=== PATIENT | male | born 1970 | race Caucasian/White ===

== ENCOUNTER 2023-02-10 16:06 | Emergency (ER) | payer OTHER, SELFPAY ==
--- NOTE | 2023-02-10 16:18 | XRR_ITS ---
PROCEDURE INFORMATION: Exam: XR Chest Exam date and time: 02/10/2023 4:31 PM Age: 52 years old Clinical indication: Pain; On breathing; Additional info: SOB TECHNIQUE: Imaging protocol: Radiologic exam of the chest. Views: 1 view. COMPARISON: No relevant prior studies available. FINDINGS: Lungs: No consolidation. Pleural spaces: No pleural effusion. No pneumothorax. Heart/Mediastinum: No cardiomegaly. Bones/joints: Unremarkable. XR/XR chest 1V portable [id number] IMPRESSION: No acute abnormality demonstrated.
[2023-02-10 16:22] VITALS: BP 154/101; PULSE 122; RESP 18; TEMP 37.1; O2SAT 94
--- NOTE | 2023-02-10 16:25 | W.ED.URI ---
HPI - URI/Sore Throat General: Chief Complaint: Nausea/Vomiting/Diarrhea Stated Complaint: FLU LIKE SYMPTOMS Time Seen by Provider: 02/10/23 16:07 Source: patient and EMS Mode of arrival: EMS Limitations: no limitations History of Present Illness: 52-year-old male states that over the last 2 days has been having flulike symptoms he states headache cough body aches chills. States he also had a fever earlier today of 101 he is afebrile here. He had some nausea denies any vomiting denies any diarrhea denies any abdominal pain. Said some mild dyspnea denies any chest pain. Associated symptoms: Reports chills, fever(s), headache(s) and nausea; Deny abdominal pain, chest pain, diarrhea or vomiting Review of Systems Const: Reports: fever(s), chills and body aches; Denies: change in appetite ENMT: Denies: throat pain or dental pain Card: Denies: chest pain Resp: Reports: dyspnea and non-productive cough GI: Reports: nausea; Denies: abdominal pain, vomiting or diarrhea : Denies: dysuria Musc: Denies: neck pain or back pain Neuro: Reports: headache(s) Myron/Lymph: Denies: easy bruising All/Imm: Denies: urticaria PFSH ED PFSH: Medical History (Updated 02/10/23 @ 17:57 by Rajni Welch MD) No pertinent past medical history Social History (Updated 02/10/23 @ 16:26 by Rajni Welch MD) Substance/Drug Use: never Physical Exam Const: COMMON NORMALS: no acute distress, patient oriented x3 and healthy appearing HENMT: COMMON NORMALS: normocephalic and atraumatic HEAD & SCALP: normocephalic and atraumatic THROAT: posterior oropharynx normal Eye: COMMON NORMALS: conjunctivae normal CONJUNCTIVA: Yes conjunctivae normal Neck/C-Spine: COMMON NORMALS: full ROM, supple and no meningeal signs Chest: COMMONS NORMALS: normal inspection of the chest and normal palpation of entire chest wall Resp: COMMON NORMALS: normal respiratory effort, No retractions, No use of accessory muscles and clear to auscultation bilaterally AUSCULTATION: clear to auscultation bilaterally Cardio: COMMON NORMALS: regular rhythm and No murmurs present (Cardio) RATE: tachycardic RHYTHM: regular rhythm GI: COMMON NORMALS: Normal to inspection, nondistended, normoactive bowel sounds present, Soft to palpation, non-tender and no masses PALPATION: Yes Soft to palpation Extremity: COMMON NORMALS: normal to inspection and full ROM Neuro: COMMON NORMALS: patient oriented x3, moves all extremities and no focal motor deficits MENINGEAL SIGNS: Yes no meningeal signs Psych: COMMON NORMALS: mental status grossly normal, Normal thought process present and cooperative THOUGHT PROCESS: Normal thought process present Skin: COMMON NORMALS: no rashes or lesions noted and no wounds GENERAL SKIN EXAM: no rashes or lesions noted Course Vital Signs: Vital signs: Vital Signs Temperature 98.8 F 02/10/23 16:22 Pulse Rate 122 H 02/10/23 16:22 Respiratory Rate 18 02/10/23 16:22 Blood Pressure 154/101 02/10/23 16:22 Pulse Oximetry 94 02/10/23 16:22 Oxygen Delivery Me thod Room Air 02/10/23 16:22 MDM - URI/Sore Throat Medical Decision Making Patient presents here with cough along with some vomiting and fevers he feels much improved here symptoms resolved after Toradol and Zofran and some IV fluids blood work here is normal besides a mild leukocytosis no large pneumonia seen his heart rate is improved its now 103 his D-dimer is negative no signs of a PE patient stable for discharge he is to follow-up with his PCP and return if worsening will prescribe him Zofran along with Keflex. Medical Records I reviewed the patient's medical records. Lab Data 02/10/23 17:06 02/10/23 17:06 Radiology Impressions Chest X-Ray 02/10/23 16:18 IMPRESSION: No acute abnormality demonstrated. Laboratory Results WBC 13.7 10^3/uL (4.0-10.0) H 02/10/23 17:06 RBC 5.14 10^6/uL (4.1-5.3) 02/10/23 17:06 Hgb 15.2 g/dL (11.7-16.6) 02/10/23 17:06 Hct 45.2 % (42.0-52.0) 02/10/23 17:06 MCV 87.9 fl (80-94) 02/10/23 17:06 MCH 29.6 pg (28.0-34.0) 02/10/23 17:06 MCHC 33.6 g/dL (30.0-36.0) 02/10/23 17:06 RDW 12.8 % (12.1-15.1) 02/10/23 17:06 Plt Count 181 10^3/cmm (130-400) 02/10/23 17:06 MPV 10.0 fL (7.4-10.4) 02/10/23 17:06 Neut % (Auto) 87.9 % 02/10/23 17:06 Lymph % (Auto) 3.9 % 02/10/23 17:06 [place] % (Auto) 7.4 % 02/10/23 17:06 Eos % (Auto) 0.0 % 02/10/23 17:06 Baso % (Auto) 0.4 % 02/10/23 17:06 Neut # (Auto) 12.07 10^3/uL (1.8-7.7) H 02/10/23 17:06 Lymph # (Auto) 0.5 10^3/uL (0.8-4.8) L 02/10/23 17:06 [place] # (Auto) 1.0 10^3/uL (0.2-0.9) H 02/10/23 17:06 Eos # (Auto) 0.0 10^3/uL (0.0-0.8) 02/10/23 17:06 Baso # (Auto) 0.1 10^3/uL (0.0-0.1) 02/10/23 17:06 Nucleated RBC % (auto) 0 % 02/10/23 17:06 Nucleated RBCs # 0.0 /100WBC 02/10/23 17:06 D-Dimer 0.49 ug/mIFEU (0-0.59) 02/10/23 17:06 Sodium 139 mmol/L (136-145) 02/10/23 17:06 Potassium 3.8 mmol/L (3.5-5.1) 02/10/23 17:06 Chloride 103 mmol/L (98-107) 02/10/23 17:06 Carbon Dioxide 20 mmol/L (22-29) L 02/10/23 17:06 Anion Gap 19.8 (5-19) H 02/10/23 17:06 BUN 15 mg/dL (6-20) 02/10/23 17:06 Creatinine 0.8 mg/dL (0.7-1.2) 02/10/23 17:06 GFR Calculation 101.1 mL/min (90-130) 02/10/23 17:06 Glucose 137 mg/dL (65-115) H 02/10/23 17:06 Calculated Osmolality 291 mOsm/kg (285-295) 02/10/23 17:06 Calcium 9.1 mg/dL (8.5-10.5) 02/10/23 17:06 Total Bilirubin 1.6 mg/dL (0.15-1.2) H 02/10/23 17:06 AST 11 U/L (0-40) 02/10/23 17:06 ALT 25 U/L (0-41) 02/10/23 17:06 Alkaline Phosphatase 71 U/L (40-130) 02/10/23 17:06 Total Protein 7.6 g/dL (6.6-8.7) 02/10/23 17:06 Albumin 4.6 g/dL (3.5-5.2) 02/10/23 17:06 Globulin 3.0 g/dL (1.3-4.6) 02/10/23 17:06 SARS-CoV-2 Ag (Rapid) negative 02/10/23 16:47 Discharge Plan Discharge Patient Disposition: Home Clinical Impression: Upper respiratory infection, Vomiting Prescriptions: New cephalexin 500 mg capsule 500 mg PO TID 7 Days Qty: 21 0RF ondansetron 4 mg tablet,disintegrating 4 mg PO Q6H PRN (Reason: nausea and vomiting) Qty: 14 0RF Discharge Orders: Discharge ED (Routine); Ordered 02/10/23 Ordered By: Rajni Welch Discharge Diet: Advance as tolerated Discharge Activity: Resume usual activity Patient Instructions: Upper Respiratory Infection (ED), Acute Nausea and Vomiting (ED) Coding Level of Care Code ED Facilities Maintenance Assistant for Leonora Petty
--- NOTE | 2023-02-10 16:46 | ECG_ITS ---
[facility] Test Date: 2023-02-10 Pat Name: Mac Westfall Department: Room: Gender: Male Vocational Psychologist: : 1970 Requested By: Rajni Welch Order Number: [id number] Bird MD: Omari Randall M.D. Measurements Intervals [place] Rate: 109 P: 38 OR: 148 QRS: -7 QRSD: 110 T: 21 QT: 323 QTc: 437 Interpretive Statements SINUS TACHYCARDIA LOW QRS VOLTAGE IN PRECORDIAL LEADS [QRS DEFLECTION < 1.0 mV IN CHEST LEADS] INCOMPLETE RIGHT BUNDLE BRANCH BLOCK [90+ ms QRS DURATION, TERMINAL R IN V1/V2, 40+ ms S IN I/aVL/V4/V5/V6] NONSPECIFIC T-WAVE ABNORMALITY ABNORMAL RHYTHM ECG No previous ECG available for comparison Electronically Signed On 02-10-2023 20:24:14 CDT by Omari Randall M.D. [id number]
--- NOTE | 2023-02-10 16:50 | PC.NURSE ---
Placed pt on bedside director of cardiac rehabilitation
[2023-02-10] MEDS: ketorolac 30 mg/mL INJ 15 MG IVP (17:01)
[2023-02-10] MEDS: ondansetron 2 mg/ML SDV 2 mL 4 MG IVP (17:01)
[2023-02-10] MEDS: acetaminophen 325 mg Tablet 650 MG PO (17:01)
[2023-02-10] MEDS: sodium chloride 0.9% 1,000 ML 999 ML IV (17:01)
[2023-02-10 17:14] LABS: SARS Covid-2 Antigen negative
[2023-02-10 17:14] LABS: Basophils # 0.1 10^3/uL (0.0-0.1); Basophils % 0.4 %; Hematocrit 45.2 % (42.0-52.0); Hemoglobin 15.2 g/dL (11.7-16.6); Lymphocytes # 0.5 10^3/uL (0.8-4.8); Lymphocytes % 3.9 %; Mean Corpuscular HGB Conc 33.6 g/dL (30.0-36.0); Mean Corpuscular Hemoglobin 29.6 pg (28.0-34.0); Mean Corpuscular Volume 87.9 fl (80-94); Monocytes % 7.4 %; Neutrophils # 12.07 10^3/uL (1.8-7.7); Neutrophils % 87.9 %; Nucleated Red Blood Cells % 0 %; Platelet Count 181 10^3/cmm (130-400); Red Blood Count 5.14 10^6/uL (4.1-5.3); Red Cell Distribution Width 12.8 % (12.1-15.1); White Blood Count 13.7 10^3/uL (4.0-10.0)
[2023-02-10 17:39] LABS: Alanine Aminotransferase 25 U/L (0-41); Albumin Level 4.6 g/dL (3.5-5.2); Alkaline Phosphatase 71 U/L (40-130); Anion Gap 19.8 (5-19); Aspartate Amino Transferase 11 U/L (0-40); Blood Urea Nitrogen 15 mg/dL (6-20); Calcium 9.1 mg/dL (8.5-10.5); Carbon Dioxide 20 mmol/L (22-29); Chloride 103 mmol/L (98-107); Glomerular Filtration Rate 101.1 mL/min (90-130); Glucose 137 mg/dL (65-115); Osmolality Calculated 291 mOsm/kg (285-295); Potassium 3.8 mmol/L (3.5-5.1); Sodium 139 mmol/L (136-145); Total Bilirubin 1.6 mg/dL (0.15-1.2); Total Protein 7.6 g/dL (6.6-8.7)
[2023-02-10 17:53] LABS: D Dimer 0.49 ug/mIFEU (0-0.59)
[2023-02-10 18:00] VITALS: BP 133/74; PULSE 118; O2SAT 92
[2023-02-10 18:14] VITALS: BP 111/91; PULSE 122; O2SAT 93
--- NOTE | 2023-02-21 13:47 | DCPLANNER ---
[facility] called patient due to no primary care physician - patient sees Dr. Lal at the [facility].
== END 2023-02-10 18:16 | disposition home or self-care (01) ==
PROVIDERS: Emergency Provider Emergency Medicine; PCP Family Medicine
DX: J06.9 Acute upper respiratory infection, unspecified (principal); R11.10 Vomiting, unspecified
CPT/HCPCS: 71045; 80053; 85025; 85378; 87426; 93005; 96361; 96374; 96375; 99285; J1885; J2405; J7030

== ENCOUNTER 2023-07-10 20:00 | Outpatient (CLI) | payer OTHER, SELFPAY | END 2023-07-10 20:01 | disposition home or self-care (01) | LOC: SLEEP 07-11 05:24 | PROVIDERS: PCP Family Medicine; Visit Provider Family Medicine | DX: G47.33 Obstructive sleep apnea (adult) (pediatric) (principal) | CPT/HCPCS: 95810 ==

== ENCOUNTER 2023-09-01 22:01 | Emergency (ER) | payer OTHER, SELFPAY ==
[2023-09-01 22:10] VITALS: BP 139/102; PULSE 96; RESP 18; TEMP 36.6; O2SAT 93
[2023-09-01 23:04] LABS: Basophils # 0.1 10^3/uL (0.0-0.1); Basophils % 1.1 %; Eosinophils # 0.2 10^3/uL (0.0-0.8); Hematocrit 44.1 % (37-53); Lymphocytes % 26.6 %; Mean Corpuscular HGB Conc 33.8 g/dL (30-55); Mean Corpuscular Hemoglobin 30.3 pg (27-33); Mean Corpuscular Volume 89.8 fl (82-101); Mean Platelet Volume 9.9 fL (7.4-10.4); Monocytes # 0.7 10^3/uL (0.2-0.9); Monocytes % 9.5 %; Neutrophils # 4.43 10^3/uL (1.8-7.7); Neutrophils % 60.3 %; Nucleated Red Blood Cells % 0 %; Platelet Count 190 10^3/cmm (157-399); Red Blood Count 4.91 10^6/uL (3.85-5.65); Red Cell Distribution Width 12.8 % (12.1-15.1); White Blood Count 7.36 10^3/uL (3.29-11.43)
[2023-09-01 23:38] LABS: Acetaminophen < 5.0 ug/mL (10-30); Alanine Aminotransferase 24 U/L (0-41); Albumin Level 4.3 g/dL (3.5-5.2); Alcohol Level 89 mg/dL (0-10); Alkaline Phosphatase 78 U/L (40-130); Anion Gap 15.8 (5-19); Aspartate Amino Transferase 14 U/L (0-40); Blood Urea Nitrogen 15 mg/dL (6-20); Calcium 9.1 mg/dL (8.5-10.5); Carbon Dioxide 23 mmol/L (22-29); Chloride 104 mmol/L (98-107); Globulin 2.6 g/dL (1.3-4.6); Glomerular Filtration Rate 87.9 mL/min (90-130); Glucose 198 mg/dL (65-115); Osmolality Calculated 294 mOsm/kg (285-295); Potassium 3.8 mmol/L (3.5-5.1); Salicylate < 0.3 mg/dL (3-10); Sodium 139 mmol/L (136-145); Thyroid Stimulating Hormone 3.51 uIU/mL (0.27-4.20); Total Bilirubin 0.5 mg/dL (0.15-1.2); Total Protein 6.9 g/dL (6.6-8.7)
--- NOTE | 2023-09-01 23:42 | ECG_ITS ---
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 Measurements Intervals [place] Rate: 81 P: 50 MO: 171 QRS: -20 QRSD: 109 T: 29 QT: 395 QTc: 461 Interpretive Statements SINUS RHYTHM LOW QRS VOLTAGE IN PRECORDIAL LEADS [QRS DEFLECTION < 1.0 mV IN CHEST LEADS] Compared to ECG 02/10/2023 17:17:30 Sinus tachycardia no longer present Incomplete right bundle-branch block no longer present T-wave abnormality no longer present Electronically Signed On 09-02-2023 8:36:07 BUNDLER by Kip Bright M.D. [id number]
--- NOTE | 2023-09-02 00:04 | ED.C_ITS ---
HPI - Psych 2 General: Chief Complaint: Psychiatric Symptoms Stated Complaint: SI Time Seen by Provider: 09/01/23 22:21 History of Present Illness: 53-year-old male patient presenting to [facility] after calling the hotline and making a suicidal statement. He notes that he had had 4 drinks tonight and was watching a TV show that triggered his suicidal ideation. He had thoughts about taking all of his Eliquis. He states that he has diabetes. No recent illnesses or fevers. He states now that he is here, he is no longer feeling suicidal. Review of Systems 2 Const: Denies: fever(s), chills or body aches Eyes: Denies: change in vision Card: Denies: chest pain or palpitations Resp: Denies: dyspnea, productive cough, non-productive cough or wheezing GI: Denies: abdominal pain, nausea, vomiting, diarrhea or hematochezia Skin/Breast: Denies: rash Neuro: Denies: headache(s), weakness in extremities, dizziness or confusion PFSH ED 2 PFSH: Medical History No pertinent past medical history Social History Substance/Drug Use: never Physical Exam 2 Const: COMMON NORMALS: no acute distress GENERAL APPEARANCE: cooperative; not ill appearing and not frail appearing HENMT: COMMON NORMALS: normocephalic, atraumatic and Normal external nose present HEAD & SCALP: normocephalic and atraumatic FACE & SINUS: normal facial exam and face symmetric NOSE: Normal external nose present Eye: COMMON NORMALS: Equal, round and reactive pupils present and EOMs intact bilaterally PUPIL: Yes Equal, round and reactive pupils present Neck/C-Spine: GENERAL: Yes trachea midline Chest: CHEST: Yes Symmetrical chest wall rise Resp: COMMON NORMALS: normal respiratory effort, No retractions, No use of accessory muscles and clear to auscultation bilaterally AUSCULTATION: clear to auscultation bilaterally Cardio: COMMON NORMALS: regular rate and regular rhythm RATE: regular rate RHYTHM: regular rhythm GI: COMMON NORMALS: Normal to inspection, nondistended, normoactive bowel sounds present Extremity: COMMON NORMALS: no pedal edema Neuro: JANIYA COMA SCALE: document GCS findings [place] coma scale eye opening: Spontaneous [place] coma scale verbal response: Orientated [place] coma scale motor response: Obey commands [place] coma scale total score: 15 S ENSORY EXAM: Yes extremities (intact) Psych: COMMON NORMALS: speech normal SPEECH: Yes normal speech Skin: COMMON NORMALS: no rashes or lesions noted GENERAL SKIN EXAM: no rashes or lesions noted Course 2 Vital Signs: Vital signs: Vital Signs Temperature 98 F 09/01/23 22:10 Pulse Rate 96 09/01/23 22:10 Respiratory Rate 18 09/01/23 22:10 Blood Pressure 139/102 09/01/23 22:10 Pulse Oximetry 93 09/01/23 22:10 Oxygen Delivery Me thod Room Air 09/01/23 22:10 MDM - Psych Medical Decision Making Patient with suicidal ideation on presentation. Blood sugar is 198, otherwise CBC and BMP are nonremarkable. Other laboratory is not remarkable, except for an alcohol level of 89. Urinalysis is pending. The patient is no longer suicidal. His symptoms were resolved on arrival here. He says that these feelings were stupid . He assures me that he will not harm himself if released. He wishes to go home. He believes intoxication had a lot to do with his suicidal thoughts, and he has sobered up now. Medically, he is stable. Lab Data 09/01/23 22:54 09/01/23 22:54 Laboratory Results WBC 7.36 10^3/uL (3.29-11.43) 09/01/23 22:54 RBC 4.91 10^6/uL (3.85-5.65) 09/01/23 22:54 Hgb 14.90 g/dL (11.27-16.99) 09/01/23 22:54 Hct 44.1 % (37-53) 09/01/23 22:54 MCV 89.8 fl (82-101) 09/01/23 22:54 MCH 30.3 pg (27-33) 09/01/23 22:54 MCHC 33.8 g/dL (30-55) 09/01/23 22:54 RDW 12.8 % (12.1-15.1) 09/01/23 22:54 Plt Count 190 10^3/cmm (157-399) 09/01/23 22:54 MPV 9.9 fL (7.4-10.4) 09/01/23 22:54 Neut % (Auto) 60.3 % 09/01/23 22:54 Lymph % (Auto) 26.6 % 09/01/23 22:54 [place] % (Auto) 9.5 % 09/01/23 22:54 Eos % (Auto) 2.0 % 09/01/23 22:54 Baso % (Auto) 1.1 % 09/01/23 22:54 Neut # (Auto) 4.43 10^3/uL (1.8-7.7) 09/01/23 22:54 Lymph # (Auto) 2.0 10^3/uL (0.8-4.8) 09/01/23 22:54 [place] # (Auto) 0.7 10^3/uL (0.2-0.9) 09/01/23 22:54 Eos # (Auto) 0.2 10^3/uL (0.0-0.8) 09/01/23 22:54 Baso # (Auto) 0.1 10^3/uL (0.0-0.1) 09/01/23 22:54 Nucleated RBC % (auto) 0 % 09/01/23 22:54 Nucleated RBCs # 0.0 /100WBC 09/01/23 22:54 Sodium 139 mmol/L (136-145) 09/01/23 22:54 Potassium 3.8 mmol/L (3.5-5.1) 09/01/23 22:54 Chloride 104 mmol/L (98-107) 09/01/23 22:54 Carbon Dioxide 23 mmol/L (22-29) 09/01/23 22:54 Anion Gap 15.8 (5-19) 09/01/23 22:54 BUN 15 mg/dL (6-20) 09/01/23 22:54 Creatinine 0.9 mg/dL (0.7-1.2) 09/01/23 22:54 GFR Calculation 87.9 mL/min (90-130) L 09/01/23 22:54 Glucose 198 mg/dL (65-115) H 09/01/23 22:54 Calculated Osmolality 294 mOsm/kg (285-295) 09/01/23 22:54 Calcium 9.1 mg/dL (8.5-10.5) 09/01/23 22:54 Total Bilirubin 0.5 mg/dL (0.15-1.2) 09/01/23 22:54 AST 14 U/L (0-40) 09/01/23 22:54 ALT 24 U/L (0-41) 09/01/23 22:54 Alkaline Phosphatase 78 U/L (40-130) 09/01/23 22:54 Total Protein 6.9 g/dL (6.6-8.7) 09/01/23 22:54 Albumin 4.3 g/dL (3.5-5.2) 09/01/23 22:54 Globulin 2.6 g/dL (1.3-4.6) 09/01/23 22:54 TSH 3.51 uIU/mL (0.27-4.20) 09/01/23 22:54 Salicylates < 0.3 mg/dL (3-10) L 09/01/23 22:54 Acetaminophen < 5.0 ug/mL (10-30) L 09/01/23 22:54 Ethyl Alcohol 89 mg/dL (0-10) H 09/01/23 22:54 No radiology studies performed this visit Discharge Plan Discharge Patient Disposition: Home Clinical Impression: Depression Condition: Stable Prescriptions: No Action ondansetron 4 mg tablet,disintegrating 4 mg PO Q6H PRN (Reason: nausea and vomiting) Qty: 14 0RF Discharge Orders: Discharge ED (Routine); Ordered 09/02/23 Ordered By: Chuck Flowers Referrals: Annika Lal MD [Primary Care Provider] - 1-3 days Patient Instructions: Depression (ED), Opioid Safety, Pain Management Activity Restrictions/Additional Instructions: Return immediately to the emergency department for the return of thoughts or wishes to harm yourself or anyone else. Avoid alcohol use, as it can worsen these feelings. Coding Level of Care Code ED Carriage Rider for Leonora Petty
--- NOTE | 2023-09-02 01:10 | PC.NURSE ---
Once patient has had time to sober , pt. states that he was just drunk and made stupid comments
== END 2023-09-02 01:11 | disposition home or self-care (01) ==
PROVIDERS: Emergency Provider Emergency Medicine; PCP Family Medicine
DX: F32.A Depression, unspecified (principal)
CPT/HCPCS: 36415; 80053; 80307; 84443; 85025; 93005; 99284

== ENCOUNTER 2024-03-17 13:33 | Emergency (ER) | payer OTHER, SELFPAY ==
[2024-03-17 13:44] VITALS: BP 128/87; PULSE 75; RESP 16; TEMP 37.1; O2SAT 97; BMI 33.4
--- NOTE | 2024-03-17 13:50 | USCV_ITS ---
Mac Westfall Age: 53 Gender: M : 1970 Exam Date: 03/17/2024 14:55 Ordering Phys: Rajni Welch MD Technologist: R Exam Location: [facility] [place]_ Indication: Rt calf pain HISTORY: Lower extremity pain. PROCEDURES: Venous duplex imaging was performed in only the right lower extremity. The following venous structures were evaluated: common femoral vein, profunda vein, proximal portion of the greater saphenous vein, superficial femoral vein, and the popliteal vein. In addition, the posterior tibial and peroneal trunk were evaluated. Serial compression, augmentation maneuvers, and spectral Doppler flow evaluation were performed. FINDINGS: No evidence of DVT seen in any vessel visualized at this time. CONCLUSIONS No evidence of right lower extremity DVT. Boaz Aguilar MD (Electronically Signed) Final Date: 17 March 2024 16:21 S
--- NOTE | 2024-03-17 13:59 | ED_ITS ---
HPI - Extremity Problem General: Chief complaint: Extremity Injury, Lower Stated complaint: [facility] right calf [facility] Time Seen by Provider: 03/17/24 13:54 Source: patient Mode of arrival: ambulatory Limitations: no limitations History of Present Illness: Patient is a nice 53-year-old male presents to ED today with complaint of right calf pain and concern for DVT. He states he ran out of his Eliquis on Sunday. Patient states he began noticing right calf pain on the following day/Sunday. He was reportedly seen at the [place] today and referred to the emergency department for ultrasound imaging. They have refilled his Eliquis and he states that is currently waiting at the pharmacy to be filled. He does not complain of chest pain, shortness of breath, difficulty breathing. MD Complaint: extremity pain (R calf) Onset (ago): day(s) Pain Consistency: constant Location: right and lower extremity Radiation: none Relieving factors: nothing Exacerbating factors: walking Associated symptoms: Reports no associated symptoms; Deny chest pain Context: history of DVT Review of Systems Card: Denies: chest pain Resp: Denies: dyspnea or hemoptysis Musc: Reports: extremity pain (R calf); Denies: neck pain, back pain, extremity swelling, joint pain, joint swelling, joint redness or joint warmth Neuro: Denies: numbness in extremities or sensory changes [facility] ED PFSH: Medical History No pertinent past medical history Social History Substance/Drug Use: never Physical Exam Const: COMMON NORMALS: no acute distress, average body habitus, patient oriented x3, no limitations, healthy appearing, alert and well nourished Resp: COMMON NORMALS: normal respiratory effort and clear to auscultation bilaterally AUSCULTATION: clear to auscultation bilaterally Cardio: COMMON NORMALS: regular rate and regular rhythm RATE: regular rate RHYTHM: regular rhythm Extremity: COMMON NORMALS: normal to inspection, capillary refill normal, no joint enlargement, no clubbing, cyanosis or edema and no pedal edema NARRATIVE EXTREMITY EXAM: no palpable cords; no obvious calf swelling; R calf tenderness present GENERAL: Yes normal exam except as noted and Yes calf tenderness (right) Neuro: COMMON NORMALS: patient oriented x3, moves all extremities, no focal motor deficits and no sensory deficits noted SENSORIUM/ORIENTATION: Yes alert Skin: COMMON NORMALS: no rashes or lesions noted GENERAL SKIN EXAM: no rashes or lesions noted Course Vital Signs: Vital signs: Vital Signs Temperature 98.8 F 03/17/24 16:02 Pulse Rate 78 03/17/24 16:02 Respiratory Rate 16 03/17/24 16:02 Blood Pressure 132/91 03/17/24 16:02 Pulse Oximetry 98 03/17/24 16:02 Oxygen Delivery Me thod Room Air 03/17/24 13:44 MDM - Extremity (Nontraumatic) Medical Decision Making Per environmental technician/preliminary report there is no DVT present. Patient states he has his Eliquis prescription waiting for him at the pharmacy. Recommend he start this immediately continue prophylaxis. Medical Records I reviewed the patient's medical records. XR interpretation done by ED provider, pending radiology final review (per US tech-no DVT) Discharge Plan Discharge Patient Disposition: Home Clinical Impression: Right calf pain Condition: Stable Prescriptions: No Action ondansetron 4 mg tablet,disintegrating 4 mg PO Q6H PRN (Reason: nausea and vomiting) Qty: 14 0RF Discharge Orders: Discharge ED (Routine); Ordered 03/17/24 Ordered By: Merle Washington Referrals: Annika Lal MD [Primary Care Provider] - Activity Restrictions/Additional Instructions: Fill your Eliquis prescription and get started back on it immediately. You need to return to the emergency department for onset of chest pain, shortness of breath, difficulty breathing, worsening calf pain or swelling, or any other concerns you may have. Coding Level of Care Code ED Gis Web Developer for Leonora Petty
[2024-03-17 16:02] VITALS: BP 132/91; PULSE 78; RESP 16; TEMP 37.1; O2SAT 98
== END 2024-03-17 15:49 | disposition home or self-care (01) ==
PROVIDERS: Emergency Provider Physician Assistant; PCP Family Medicine
DX: M79.661 Pain in right lower leg (principal)
CPT/HCPCS: 93971; 99284

== ENCOUNTER 2024-08-03 10:24 | Emergency (ER) | payer OTHER, SELFPAY ==
--- NOTE | 2024-08-03 10:27 | XRR_ITS ---
PROCEDURE INFORMATION: Exam: XR Chest Exam date and time: 08/03/2024 10:29 AM Age: 54 years old Clinical indication: Pain; Chest pressure; Additional info: Cp TECHNIQUE: Imaging protocol: Radiologic exam of the chest. Views: 1 view. COMPARISON: CR XR chest 1V portable [id number] 02/10/2023 4:31 PM FINDINGS: Lungs: Unremarkable. No consolidation. Pleural spaces: Unremarkable. No pleural effusion. No pneumothorax. Heart/Mediastinum: Unremarkable. No cardiomegaly. Bones/joints: Unremarkable. XR/XR chest 1V portable [id number] IMPRESSION: No acute findings.
--- NOTE | 2024-08-03 10:27 | ECG_ITS ---
[facility] Test Date: 2024-08-03 Pat Name: Mac Westfall Department: Room: Gender: Male Display Manager: : 1970 Requested By: Carlos Manley Order Number: [id number] MD: Jeison Devries M.D. Measurements Intervals [place] Rate: 78 P: 48 FL: 161 QRS: -18 QRSD: 102 T: 24 QT: 376 QTc: 429 Interpretive Statements SINUS RHYTHM Nonspecific ST changes Compared to ECG 09/01/2023 23:42:11 No significant changes Electronically Signed On 08-03-2024 14:01:13 CARDIAC RN by Jeison Devries M.D. [id number]
[2024-08-03 10:28] VITALS: BP 156/96; PULSE 72; RESP 18; TEMP 36.6; O2SAT 96; BMI 33.8
--- NOTE | 2024-08-03 10:48 | ED_ITS ---
HPI - Chest Pain 2 General: Chief Complaint: Chest Pain Stated Complaint: chest pain Time Seen by Provider: 08/03/24 10:27 Source: patient Mode of arrival: ambulatory Limitations: no limitations History of Present Illness: This patient drove himself to the emergency department from his home this morning. He states that he is concerned about chest pain. He states he developed chest pain when he was stretching this morning and was a sharp pain in his lower sternum in his epigastric area. He states that it came on as noted with stretching. He states he does not have any associated shortness of breath cough fever etc. He does not have any known history of coronary artery disease or lung disease. 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 He denies any recent illness. He states he had similar symptoms several years ago. He is concerned and wants to make sure it is not anything serious MD complaint: chest pain Pain radiation: none Quality: aching Exacerbating factors: inspiration and palpation Associated symptoms: Deny abdominal pain, dyspnea, fever(s), nausea, palpitations, syncope or vomiting Risk Factors: Coronary artery disease risk factors: none Related Data Previous Rx's Medication Instructions Recorded ondansetron 4 mg disintegrating 4 mg PO Q6H PRN nausea and 02/10/23 tablet vomiting #14 tabs Allergies Allergy/AdvReac Type Severity Reaction Status Date / Time No Known Allergies Allergy Verified 09/01/23 22:17 Review of Systems 2 Const: Denies: fever(s) or chills ENMT: Denies: throat pain, odynophagia, nasal discharge or nasal congestion Card: Reports: chest pain; Denies: palpitations, irregular heart rhythm, syncope or pre-syncope Resp: Denies: dyspnea, productive cough or non-productive cough GI: Denies: abdominal pain, nausea or vomiting : Denies: flank pain, difficulty urinating, dysuria or urinary frequency Musc: Denies: neck pain, back pain, extremity pain or extremity swelling Skin/Breast: Denies: rash or pruritus Neuro: Denies: headache(s), numbness in extremities or weakness in extremities Psych: Denies: anxiety Myron/Lymph: Reports: easy bruising PFSH ED 2 PFSH: Medical History No pertinent past medical history Social History Substance/Drug Use: never Physical Exam 2 Narrative: EXAM NARRATIVE: He appears to be in no acute distress answers questions in a goal-directed and fluent fashion. Const: COMMON NORMALS: no acute distress, patient oriented x3, healthy appearing and alert GENERAL APPEARANCE: cooperative and comfortable N UTRITIONAL APPEARANCE: overweight HENMT: COMMON NORMALS: normocephalic, Normal nasal mucous membranes and turbinates present, moist oral mucous membranes and oropharynx normal HEAD & SCALP: normocephalic NOSE: Normal nasal mucous membranes and turbinates present Eye: COMMON NORMALS: Equal, round and reactive pupils present, EOMs intact bilaterally and conjunctivae normal CONJUNCTIVA: Yes conjunctivae normal P UPIL: Yes Equal, round and reactive pupils present Neck/C-Spine: COMMON NORMALS: full ROM and no lymphadenopathy Chest: COMMONS NORMALS: normal inspection of the chest OTHER: He has tenderness in his lower chest particularly along the costochondral margins more so on the left than the right. Abduction of his left arm reproduces a popping sensation to his left anterior chest. There is no deformity there is no rash there is no subcutaneous emphysema etc. Chest images (male): 1. Area of tenderness Resp: COMMON NORMALS: normal respiratory effort, No retractions, No use of accessory muscles and clear to auscultation bilaterally AUSCULTATION: clear to auscultation bilaterally Cardio: COMMON NORMALS: regular rate, regular rhythm, No murmurs present (Cardio) and Peripheral pulses 2+ throughout RATE: regular rate RHYTHM: r egular rhythm PERIPHERAL PULSES: Peripheral pulses 2+ throughout GI: COMMON NORMALS: Normal to inspection, nondistended, normoactive bowel sounds present, Soft to palpation, non-tender, No hepatosplenomegaly present, no masses and no bruits PALPATION: Yes Soft to palpation and Yes No hepatosplenomegaly present : COMMON NORMALS: Yes no CVA tenderness BLADDER/KIDNEY EXAM: Yes no CVA tenderness Back/Pelvis: COMMON NORMALS: no CVA tenderness and thoracic and lumbar spine normal to inspection OTHER: Mild thoracic tenderness around the level of T8-T10 on the left. No skin changes etc. Extremity: COMMON NORMALS: full ROM, capillary refill normal, no calf tenderness and no pedal edema Neuro: COMMON NORMALS: patient oriented x3, moves all extremities, no focal motor deficits and no sensory deficits noted SENSORIUM/ORIENTATION: Yes alert Psych: COMMON NORMALS: mental status grossly normal Skin: COMMON NORMALS: no rashes or lesions noted and turgor normal GENERAL SKIN EXAM: no rashes or lesions noted and turgor normal Course 2 Vital Signs: Vital signs: Vital Signs Temperature 97.8 F 08/03/24 10:28 Pulse Rate 72 08/03/24 10:28 Respiratory Rate 20 H 08/03/24 11:00 Blood Pressure 143/84 08/03/24 11:00 Pulse Oximetry 95 08/03/24 11:00 Oxygen Delivery Me thod Room Air 08/03/24 10:28 MDM - Chest Pain Medical Decision Making Patient who presented with chest pain as noted in the HPI. Differential is predominantly way towards musculoskeletal but because of the patient's concerns as well as other potential risk factors differential included establishing no evidence of ACS arrhythmia pneumonia etc. chest x-ray biomarkers EKG residential monitor are all reassuring without any evidence of arrhythmia, EKG changes suggestive of ischemia and negative biomarker. His history strongly supports musculoskeletal etiology. No evidence of pneumothorax rib fracture etc. This was reviewed and discussed with the patient in detail who voiced understanding. No evidence at this time of an ongoing emergency medical condition but return precautions were reviewed with the patient. Lab Data I reviewed the patient's lab results. 08/03/24 10:49 08/03/24 10:49 Radiology Impressions Chest X-Ray 08/03/24 10:27 IMPRESSION: No acute findings. Laboratory Results WBC 7.40 10^3/uL (3.29-11.43) 08/03/24 10:49 RBC 4.93 10^6/uL (3.85-5.65) 08/03/24 10:49 Hgb 14.80 g/dL (11.27-16.99) 08/03/24 10:49 Hct 44.3 % (37-53) 08/03/24 10:49 MCV 89.9 fl (82-101) 08/03/24 10:49 MCH 30.0 pg (27-33) 08/03/24 10:49 MCHC 33.4 g/dL (30-55) 08/03/24 10:49 RDW 12.7 % (12.1-15.1) 08/03/24 10:49 Plt Count 188 10^3/cmm (157-399) 08/03/24 10:49 MPV 10.2 fL (7.4-10.4) 08/03/24 10:49 Neut % (Auto) 67.1 % 08/03/24 10:49 Lymph % (Auto) 21.5 % 08/03/24 10:49 [place] % (Auto) 9.3 % 08/03/24 10:49 Eos % (Auto) 0.9 % 08/03/24 10:49 Baso % (Auto) 0.8 % 08/03/24 10:49 Neut # (Auto) 4.96 10^3/uL (1.8-7.7) 08/03/24 10:49 Lymph # (Auto) 1.6 10^3/uL (0.8-4.8) 08/03/24 10:49 [place] # (Auto) 0.7 10^3/uL (0.2-0.9) 08/03/24 10:49 Eos # (Auto) 0.1 10^3/uL (0.0-0.8) 08/03/24 10:49 Baso # (Auto) 0.1 10^3/uL (0.0-0.1) 08/03/24 10:49 Nucleated RBC % (auto) 0 % 08/03/24 10:49 Nucleated RBCs # 0.0 /100WBC 08/03/24 10:49 Sodium 141 mmol/L (136-145) 08/03/24 10:49 Potassium 4.4 mmol/L (3.5-5.1) 08/03/24 10:49 Chloride 106 mmol/L (98-107) 08/03/24 10:49 Carbon Dioxide 24 mmol/L (22-29) 08/03/24 10:49 Anion Gap 15.4 (5-19) 08/03/24 10:49 BUN 14 mg/dL (6-20) 08/03/24 10:49 Creatinine 0.9 mg/dL (0.7-1.2) 08/03/24 10:49 Calcium 8.6 mg/dL (8.5-10.5) 08/03/24 10:49 Total Bilirubin 0.7 mg/dL (0.15-1.2) 08/03/24 10:49 AST 25 U/L (0-40) 08/03/24 10:49 ALT 37 U/L (0-41) 08/03/24 10:49 Alkaline Phosphatase 81 U/L (40-130) 08/03/24 10:49 Troponin T Baseline < 6 ng/L (0-15) 08/03/24 10:49 Total Protein 6.6 g/dL (6.6-8.7) 08/03/24 10:49 Albumin 4.5 g/dL (3.5-5.2) 08/03/24 10:49 Globulin 2.1 g/dL (1.3-4.6) 08/03/24 10:49 All radiology interpretation(s) finalized by discharge EKG Data EKG 1: I personally reviewed and interpreted this EKG as follows: Interpretation: Resting EKG reveals ventricular rate of 78 bpm. Normal CO interval QRS duration and QT corrected QT interval. Normal axis. No acute ST-T wave changes noted. Discharge Plan Discharge Patient Disposition: Home Clinical Impression: Chest pain, Costochondral pain Condition: Stable Prescriptions: No Action ondansetron 4 mg tablet,disintegrating 4 mg PO Q6H PRN (Reason: nausea and vomiting) Qty: 14 0RF Discharge Orders: Discharge ED (Routine); Ordered 08/03/24 Ordered By: Carlos Manley Referrals: Annika Lal MD [Primary Care Provider] - Discharge Diet: Usual diet Discharge Activity: Increase activity as tolerated Patient Instructions: Opioid Safety, Pain Management Activity Restrictions/Additional Instructions: As discussed while you are in the emergency department there is no evidence today that your pain is related to any heart or lung issues. As we also discussed that it would appear the to be as a result of strain or stress on your junction of your your breastbone. We recommend using acetaminophen for any pain control or any of your other usual medications and to use for pain control. This may take several days to 2 to 3 weeks to resolve. If you develop any new or concerning symptoms prolonged chest pain with activity shortness of breath with sweating and nausea etc. return to the emergency department immediately for reevaluation. Coding Level of Care Code ED Addictions Therapist for Leonora Petty
[2024-08-03 10:58] LABS: Basophils # 0.1 10^3/uL (0.0-0.1); Basophils % 0.8 %; Eosinophils # 0.1 10^3/uL (0.0-0.8); Eosinophils % 0.9 %; Hematocrit 44.3 % (37-53); Lymphocytes # 1.6 10^3/uL (0.8-4.8); Lymphocytes % 21.5 %; Mean Corpuscular HGB Conc 33.4 g/dL (30-55); Mean Corpuscular Volume 89.9 fl (82-101); Mean Platelet Volume 10.2 fL (7.4-10.4); Monocytes # 0.7 10^3/uL (0.2-0.9); Monocytes % 9.3 %; Neutrophils # 4.96 10^3/uL (1.8-7.7); Neutrophils % 67.1 %; Nucleated Red Blood Cells % 0 %; Platelet Count 188 10^3/cmm (157-399); Red Blood Count 4.93 10^6/uL (3.85-5.65); Red Cell Distribution Width 12.7 % (12.1-15.1)
[2024-08-03 11:00] VITALS: BP 143/84; RESP 20; O2SAT 95
[2024-08-03 11:23] LABS: Alanine Aminotransferase 37 U/L (0-41); Albumin Level 4.5 g/dL (3.5-5.2); Alkaline Phosphatase 81 U/L (40-130); Anion Gap 15.4 (5-19); Aspartate Amino Transferase 25 U/L (0-40); Blood Urea Nitrogen 14 mg/dL (6-20); Calcium 8.6 mg/dL (8.5-10.5); Carbon Dioxide 24 mmol/L (22-29); Chloride 106 mmol/L (98-107); Creatinine Clr Calc Pharmacy 113.6209; Globulin 2.1 g/dL (1.3-4.6); Glomerular Filtration Rate 87.6 mL/min (90-130); Glucose 189 mg/dL (65-115); Osmolality Calculated 298 mOsm/kg (285-295); Potassium 4.4 mmol/L (3.5-5.1); Sodium 141 mmol/L (136-145); Total Bilirubin 0.7 mg/dL (0.15-1.2); Total Protein 6.6 g/dL (6.6-8.7); Troponin(5th) Baseline < 6 ng/L (0-15)
[2024-08-03 11:30] VITALS: BP 124/83; PULSE 75; RESP 15; O2SAT 95
[2024-08-03 11:56] VITALS: BP 121/79; PULSE 78; O2SAT 94
== END 2024-08-03 11:57 | disposition home or self-care (01) ==
PROVIDERS: Emergency Provider Emergency Medicine; PCP Family Medicine
DX: R07.1 Chest pain on breathing (principal)
CPT/HCPCS: 71045; 80053; 84484; 85025; 93005; 99285

== ENCOUNTER 2024-08-13 02:29 | Emergency (ER) | payer OTHER, SELFPAY ==
[2024-08-13 02:33] VITALS: BP 174/116; PULSE 94; RESP 18; TEMP 36.4; O2SAT 94; BMI 34.1
--- NOTE | 2024-08-13 02:33 | ECG_ITS ---
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1970 Requested By: Juice Chang Order Number: [id number] Bird MD: HIEU ALEGRIA Measurements Intervals [place] Rate: 91 P: 52 MA: 157 QRS: -19 QRSD: 102 T: 31 QT: 360 QTc: 444 Interpretive Statements SINUS RHYTHM LOW QRS VOLTAGE IN PRECORDIAL LEADS [QRS DEFLECTION < 1.0 mV IN CHEST LEADS] INCOMPLETE RIGHT BUNDLE BRANCH BLOCK [90+ ms QRS DURATION, TERMINAL R IN V1/V2, 40+ ms S IN I/aVL/V4/V5/V6] INTERPRETATION BASED ON A DEFAULT AGE OF 40 YEARS Compared to ECG 08/03/2024 10:28:24 Low QRS voltage now present Incomplete right bundle-branch block now present ST (T wave) deviation no longer present Electronically Signed On 08-13-2024 18:09:24 DIRECTOR OF COMPENSATION by HIEU ALEGRIA [id number]
[2024-08-13 02:36] VITALS: BP 142/96; PULSE 88; RESP 12; O2SAT 96
--- NOTE | 2024-08-13 02:36 | XRR_ITS ---
PROCEDURE INFORMATION: Exam: XR Chest Exam date and time: 08/13/2024 2:49 AM Age: 54 years old Clinical indication: Other: Palpitations; Additional info: Palpitations, tachycardia HTN TECHNIQUE: Imaging protocol: Radiologic exam of the chest. Views: 1 view. COMPARISON: CR (CHEST, ) 08/03/2024 10:29 AM FINDINGS: Lungs: Unremarkable. No consolidation. Pleural spaces: Unremarkable. No pleural effusion. No pneumothorax. Heart/Mediastinum: Unremarkable. No cardiomegaly. Bones/joints: Unremarkable. XR/XR chest 1V portable [id number] IMPRESSION: No acute findings.
--- NOTE | 2024-08-13 02:40 | ED_ITS ---
HPI - Chest Pain 2 General: Chief Complaint: Chest Pain Stated Complaint: Heart Racing Time Seen by Provider: 08/13/24 02:31 History of Present Illness: Patient presents to the ER with complaints of his heart racing. Symptoms began about 45 minutes ago. Woke him up from sleep. Patient is never anything like this before. Patient [place] chest pain shortness of breath nausea vomiting diaphoresis. Upon arrival to the ER patient's heart rate is 94 beats a minute blood pressure is 174/116. Related Data Previous Rx's Medication Instructions Recorded ondansetron 4 mg disintegrating 4 mg PO Q6H PRN nausea and 02/10/23 tablet vomiting #14 tabs Allergies Allergy/AdvReac Type Severity Reaction Status Date / Time No Known Allergies Allergy Verified 08/13/24 02:36 Review of Systems 2 General: Reports: 10 or more systems reviewed and unremarkable except in HPI and below PFSH ED 2 PFSH: Medical History No pertinent past medical history Social History Substance/Drug Use: never Physical Exam 2 Const: COMMON NORMALS: no acute distress, average body habitus, patient oriented x3, no limitations, healthy appearing, alert and well nourished HENMT: COMMON NORMALS: normocephalic, atraumatic, hearing grossly normal bilaterally, external ears normal, Normal external nose present and moist oral mucous membranes HEAD & SCALP: normocephalic and atraumatic NOSE: Normal external nose present EXTERNAL EAR: Yes external ears normal Neck/C-Spine: COMMON NORMALS: no JVD Chest: COMMONS NORMALS: normal inspection of the chest and normal palpation of entire chest wall Cardio: COMMON NORMALS: no JVD, regular rate, regular rhythm, S1 normal heart sound present, S2 normal heart sound present, No gallops present (Cardio), No clicks present (Cardio), No murmurs present (Cardio) and No rub (Cardio) R ATE: regular rate RHYTHM: regular rhythm HEART SOUNDS: S1 normal heart sound present and S2 normal heart sound present GI: COMMON NORMALS: Normal to inspection, nondistended, normoactive bowel sounds present, Soft to palpation, non-tender, No hepatosplenomegaly present and no masses PALPATION: Yes Soft to palpation and Yes No hepatosplenomegaly present Neuro: COMMON NORMALS: patient oriented x3 SENSORIUM/ORIENTATION: Yes alert Course 2 Vital Signs: Vital signs: Vital Signs Temperature 97.6 F 08/13/24 02:33 Pulse Rate 73 08/13/24 04:35 Respiratory Rate 13 08/13/24 03:06 Blood Pressure 145/93 08/13/24 04:35 Pulse Oximetry 95 08/13/24 04:35 Oxygen Delivery Me thod Room Air 08/13/24 02:33 MDM - Chest Pain Medical Decision Making Patient was worked up with gender chest pain/chest x-ray, serial EKGs, serial enzymes and other lab work, all which was essentially benign. Patient's blood sugar was slightly elevated 237, these results was discussed with the patient. Patient is feeling better and patient be discharged home. Medical Records I reviewed the patient's medical records. Lab Data I reviewed the patient's lab results. 08/13/24 02:41 08/13/24 02:41 Radiology Impressions Chest X-Ray 08/13/24 02:36 IMPRESSION: No acute findings. Laboratory Results WBC 6.95 10^3/uL (3.29-11.43) 08/13/24 02:41 RBC 5.17 10^6/uL (3.85-5.65) 08/13/24 02:41 Hgb 15.30 g/dL (11.27-16.99) 08/13/24 02:41 Hct 45.5 % (37-53) 08/13/24 02:41 MCV 88.0 fl (82-101) 08/13/24 02:41 MCH 29.6 pg (27-33) 08/13/24 02:41 MCHC 33.6 g/dL (30-55) 08/13/24 02:41 RDW 12.6 % (12.1-15.1) 08/13/24 02:41 Plt Count 204 10^3/cmm (157-399) 08/13/24 02:41 MPV 10.2 fL (7.4-10.4) 08/13/24 02:41 Neut % (Auto) 54.4 % 08/13/24 02:41 Lymph % (Auto) 31.8 % 08/13/24 02:41 [place] % (Auto) 9.4 % 08/13/24 02:41 Eos % (Auto) 2.2 % 08/13/24 02:41 Baso % (Auto) 1.6 % 08/13/24 02:41 Neut # (Auto) 3.79 10^3/uL (1.8-7.7) 08/13/24 02:41 Lymph # (Auto) 2.2 10^3/uL (0.8-4.8) 08/13/24 02:41 [place] # (Auto) 0.7 10^3/uL (0.2-0.9) 08/13/24 02:41 Eos # (Auto) 0.2 10^3/uL (0.0-0.8) 08/13/24 02:41 Baso # (Auto) 0.1 10^3/uL (0.0-0.1) 08/13/24 02:41 Nucleated RBC % (auto) 0 % 08/13/24 02:41 Nucleated RBCs # 0.0 /100WBC 08/13/24 02:41 Sodium 140 mmol/L (136-145) 08/13/24 02:41 Potassium 3.9 mmol/L (3.5-5.1) 08/13/24 02:41 Chloride 105 mmol/L (98-107) 08/13/24 02:41 Carbon Dioxide 20 mmol/L (22-29) L 08/13/24 02:41 Anion Gap 18.9 (5-19) 08/13/24 02:41 BUN 15 mg/dL (6-20) 08/13/24 02:41 Creatinine 0.9 mg/dL (0.7-1.2) 08/13/24 02:41 GFR Calculation 87.6 mL/min (90-130) L 08/13/24 02:41 Glucose 237 mg/dL (65-115) H 08/13/24 02:41 Calculated Osmolality 299 mOsm/kg (285-295) H 08/13/24 02:41 Calcium 8.2 mg/dL (8.5-10.5) L 08/13/24 02:41 Total Bilirubin 0.5 mg/dL (0.15-1.2) 08/13/24 02:41 AST 18 U/L (0-40) 08/13/24 02:41 ALT 29 U/L (0-41) 08/13/24 02:41 Alkaline Phosphatase 77 U/L (40-130) 08/13/24 02:41 Troponin T Baseline < 6 ng/L (0-15) 08/13/24 02:41 Troponin T 120 Minute 6.00 ng/L (0-15) 08/13/24 04:15 Delta Troponin T 0.34609 ABS# (0-10) 08/13/24 04:15 Total Protein 6.7 g/dL (6.6-8.7) 08/13/24 02:41 Albumin 4.2 g/dL (3.5-5.2) 08/13/24 02:41 Globulin 2.5 g/dL (1.3-4.6) 08/13/24 02:41 All radiology interpretation(s) finalized by discharge Discharge Plan Discharge Patient Disposition: Home Clinical Impression: Tachycardia, unspecified Condition: Stable Prescriptions: No Action ondansetron 4 mg tablet,disintegrating 4 mg PO Q6H PRN (Reason: nausea and vomiting) Qty: 14 0RF Discharge Orders: Discharge ED (Routine); Ordered 08/13/24 Ordered By: Juice Chang Referrals: Annika Lal MD [Primary Care Provider] - 1 week Patient Instructions: Tachycardia (ED) Activity Restrictions/Additional Instructions: Thank you for choosing [facility] for your healthcare needs today. Please realize that you were seen in the emergency department and that we are providing you with an emergency medical screening exam and this may not be a complete and all exclusive of all testing and/or medical workup we may need to determine your element or severity of your illness. It is very important that you follow-up as instructed with your primary care provider or specialist for the additional evaluation and to discuss your medical treatment plan. You may return to the emergency department should you have concerns or if your condition changes or worsens in any way. Coding Level of Care Code ED Early Childhood Teacher Assistant for Leonora Petty
[2024-08-13 02:47] LABS: Basophils # 0.1 10^3/uL (0.0-0.1); Basophils % 1.6 %; Eosinophils # 0.2 10^3/uL (0.0-0.8); Eosinophils % 2.2 %; Hematocrit 45.5 % (37-53); Lymphocytes # 2.2 10^3/uL (0.8-4.8); Lymphocytes % 31.8 %; Mean Corpuscular HGB Conc 33.6 g/dL (30-55); Mean Corpuscular Hemoglobin 29.6 pg (27-33); Mean Platelet Volume 10.2 fL (7.4-10.4); Monocytes # 0.7 10^3/uL (0.2-0.9); Monocytes % 9.4 %; Neutrophils # 3.79 10^3/uL (1.8-7.7); Neutrophils % 54.4 %; Nucleated Red Blood Cells % 0 %; Platelet Count 204 10^3/cmm (157-399); Red Blood Count 5.17 10^6/uL (3.85-5.65); Red Cell Distribution Width 12.6 % (12.1-15.1); White Blood Count 6.95 10^3/uL (3.29-11.43)
[2024-08-13 03:03] LABS: Troponin(5th) Baseline < 6 ng/L (0-15)
[2024-08-13 03:06] VITALS: BP 142/95; PULSE 95; RESP 13; O2SAT 92
[2024-08-13 03:06] LABS: Alanine Aminotransferase 29 U/L (0-41); Albumin Level 4.2 g/dL (3.5-5.2); Alkaline Phosphatase 77 U/L (40-130); Anion Gap 18.9 (5-19); Aspartate Amino Transferase 18 U/L (0-40); Blood Urea Nitrogen 15 mg/dL (6-20); Calcium 8.2 mg/dL (8.5-10.5); Carbon Dioxide 20 mmol/L (22-29); Chloride 105 mmol/L (98-107); Creatinine Clr Calc Pharmacy 114.0968; Globulin 2.5 g/dL (1.3-4.6); Glomerular Filtration Rate 87.6 mL/min (90-130); Glucose 237 mg/dL (65-115); Osmolality Calculated 299 mOsm/kg (285-295); Potassium 3.9 mmol/L (3.5-5.1); Sodium 140 mmol/L (136-145); Total Bilirubin 0.5 mg/dL (0.15-1.2); Total Protein 6.7 g/dL (6.6-8.7)
--- NOTE | 2024-08-13 04:21 | ECG_ITS ---
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1970 Requested By: Juice Chang Order Number: [id number] Bird MD: HIEU ALEGRIA Measurements Intervals [place] Rate: 79 P: 39 PA: 172 QRS: -17 QRSD: 102 T: 6 QT: 379 QTc: 437 Interpretive Statements SINUS RHYTHM LOW QRS VOLTAGE IN PRECORDIAL LEADS [QRS DEFLECTION < 1.0 mV IN CHEST LEADS] INCOMPLETE RIGHT BUNDLE BRANCH BLOCK [90+ ms QRS DURATION, TERMINAL R IN V1/V2, 40+ ms S IN I/aVL/V4/V5/V6] Compared to ECG 08/03/2024 10:28:24 Low QRS voltage now present Incomplete right bundle-branch block now present ST (T wave) deviation no longer present Electronically Signed On 08-13-2024 18:09:20 TELEGRAPH SERVICE RATER by HIEU ALEGRIA [email or web address]
[2024-08-13 04:35] VITALS: BP 145/93; PULSE 73; O2SAT 95
[2024-08-13 04:41] LABS: Troponin 5 2HR Delta 0.00001 ABS# (0-10)
[2024-08-13 05:11] VITALS: BP 140/101; PULSE 84; O2SAT 96
== END 2024-08-13 05:13 | disposition home or self-care (01) ==
PROVIDERS: Emergency Provider Emergency Medicine; PCP Family Medicine
DX: R00.0 Tachycardia, unspecified (principal)
CPT/HCPCS: 36415; 71045; 80053; 84484; 85025; 93005; 99285

== ENCOUNTER 2025-02-11 10:35 | Emergency (ER) | payer OTHER, SELFPAY ==
[2025-02-11 10:38] VITALS: BP 147/90; PULSE 83; RESP 16; TEMP 36.7; O2SAT 93
--- NOTE | 2025-02-11 10:39 | ECG_ITS ---
[facility] Test Date: 2025-02-11 Pat Name: Mac Westfall Department: Room: Gender: Male Serology Technician: : 1970 Requested By: Colin Hogan Order Number: [id number] Bird MD: Damián Johnson M.D. Measurements Intervals [place] Rate: 73 P: 57 [place]: 168 QRS: -22 QRSD: 102 T: 30 QT: 379 QTc: 419 Interpretive Statements SINUS RHYTHM BORDERLINE LEFT AXIS DEVIATION [QRS AXIS < -20] Compared to ECG 08/13/2024 04:21:05 Incomplete right bundle-branch block no longer present Electronically Signed On 02-12-2025 18:09:12 CDT by Damián Johnson M.D. [id number]
--- NOTE | 2025-02-11 10:49 | XRR_ITS ---
PROCEDURE INFORMATION: Exam: XR Chest Exam date and time: 02/11/2025 10:54 AM Age: 54 years old Clinical indication: Pain; Angina pectoris; Additional info: Chest pain TECHNIQUE: Imaging protocol: Radiologic exam of the chest. Views: 1 view. COMPARISON: CR XR chest 1V portable [id number] 08/13/2024 2:49 AM FINDINGS: Lungs: Unremarkable. No consolidation. Pleural spaces: Unremarkable. No pleural effusion. No pneumothorax. Heart/Mediastinum: Unremarkable. No cardiomegaly. Bones/joints: Unremarkable. XR/XR chest 1V portable [id number] IMPRESSION: No acute findings.
[2025-02-11] MEDS: aspirin 81 mg Chew Tablet 324 MG PO (10:57)
[2025-02-11 11:01] VITALS: BP 151/89; PULSE 92
[2025-02-11] MEDS: nitroglycerin 1 gm/inch oint Pkt 1 INCH TOPICAL (11:01)
[2025-02-11 11:02] LABS: Basophils # 0.1 10^3/uL (0.0-0.1); Basophils % 1.1 %; Eosinophils # 0.1 10^3/uL (0.0-0.8); Eosinophils % 0.8 %; Hematocrit 46.7 % (37-53); Lymphocytes # 1.5 10^3/uL (0.8-4.8); Mean Corpuscular HGB Conc 32.8 g/dL (30-55); Mean Corpuscular Hemoglobin 29.8 pg (27-33); Mean Corpuscular Volume 90.9 fl (82-101); Mean Platelet Volume 10.2 fL (7.4-10.4); Monocytes # 0.7 10^3/uL (0.2-0.9); Monocytes % 9.9 %; Neutrophils # 4.85 10^3/uL (1.8-7.7); Neutrophils % 66.8 %; Nucleated Red Blood Cells % 0 %; Platelet Count 205 10^3/cmm (157-399); Red Blood Count 5.14 10^6/uL (3.85-5.65); Red Cell Distribution Width 13.3 % (12.1-15.1); White Blood Count 7.27 10^3/uL (3.29-11.43)
--- NOTE | 2025-02-11 11:05 | PC.PHAR ---
[facility] 02/11/25 11:05am
--- NOTE | 2025-02-11 11:10 | W.ED.CHESTPA ---
HPI - Chest Pain General: Chief Complaint: Chest Pain Stated Complaint: chest pain Time Seen by Provider: 02/11/25 10:44 History of Present Illness: 54-year-old male presents to the emergency room complaining left-sided chest pain. He has a history of PEs DVTs he is on Eliquis for that he is continue to take it regularly is not having any chest pain at this time. No nausea vomiting or shortness of breath no diaphoresis. Associated symptoms: Deny abdominal pain, dyspnea or fever(s) Related Data Home Medications ?Medication ?Instructions ?Recorded ?Confirmed apixaban 5 mg tablet (Eliquis) 5 mg PO BID 02/11/25 02/11/25 celecoxib 200 mg capsule (Celebrex) 200 mg PO DAILY 02/11/25 02/11/25 clobetasol 0.05 % scalp solution See Rx Instructions .Route .COMPLEX 02/11/25 02/11/25 empagliflozin 25 mg tablet 25 mg PO QPM 02/11/25 02/11/25 (Jardiance) glimepiride 4 mg tablet 4 mg PO QAM 02/11/25 02/11/25 hydroxyzine HCl 25 mg tablet 25 mg PO TID PRN Anxiety 02/11/25 02/11/25 mometasone 0.1 % topical cream 1 applic topical BID PRN Skin 02/11/25 02/11/25 Irritation rosuvastatin 40 mg tablet 40 mg PO QPM 02/11/25 02/11/25 tizanidine 4 mg tablet 4 mg PO Q8H PRN muscle spasms 02/11/25 02/11/25 Previous Rx's ?Medication ?Instructions ?Recorded ondansetron 4 mg disintegrating 4 mg PO Q6H PRN nausea and 02/10/23 tablet vomiting #14 tabs pantoprazole 40 mg tablet,delayed 40 mg PO DAILY #30 tabs 02/11/25 release (Protonix) Allergies Allergy/AdvReac Type Severity Reaction Status Date / Time No Known Allergies Allergy Verified 08/13/24 02:36 Review of Systems Const: Denies: fever(s) or chills Card: Reports: chest pain Resp: Denies: dyspnea GI: Denies: abdominal pain : Denies: dysuria, urinary frequency or urinary urgency Musc: Denies: neck pain or back pain Skin/Breast: Denies: rash PFSH ED PFSH: Medical History No pertinent past medical history Social History Substance/Drug Use: never Physical Exam Const: GENERAL APPEARANCE: cooperative ORIENTATION/CONSCIOUSNESS: Yes awake, Yes oriented to person, Yes oriented to place and Yes oriented to time HENMT: COMMON NORMALS: normocephalic, atraumatic and hearing grossly normal bilaterally HEAD & SCALP: normocephalic and atraumatic Resp: COMMON NORMALS: normal respiratory effort, No retractions, No use of accessory muscles and clear to auscultation bilaterally AUSCULTATION: clear to auscultation bilaterally Cardio: COMMON NORMALS: regular rate, regular rhythm and No murmurs present (Cardio) RATE: regular rate RHYTHM: regular rhythm GI: COMMON NORMALS: Soft to palpation and No hepatosplenomegaly present AUSCULTATION: Yes normoactive bowel sounds PALPATION: Yes Soft to palpation, No Tenderness to palpation present (GI), No Guarding due to palpation present (GI) and Yes No hepatosplenomegaly present Extremity: COMMON NORMALS: normal to inspection, capillary refill normal, no clubbing, cyanosis or edema, no calf tenderness and no pedal edema Neuro: SENSORIUM/ORIENTATION: Yes oriented to person, Yes oriented to place and Yes oriented to time Skin: COMMON NORMALS: no rashes or lesions noted GENERAL SKIN EXAM: no rashes or lesions noted Course Vital Signs: Vital signs: Vital Signs Temperature 98.0 F 02/11/25 10:38 Pulse Rate 97 02/11/25 11:36 Respiratory Rate 16 02/11/25 10:38 Blood Pressure 135/90 02/11/25 11:36 Pulse Oximetry 97 02/11/25 11:36 Oxygen Delivery Me thod Room Air 02/11/25 10:38 MDM - Chest Pain Medical Decision Making EKG shows a normal sinus rhythm no acute ST changes cardiac enzymes unremarkable. Sats have been good has not been particular tachycardic. Suspect this more be GI in nature will discharge patient home return for further problems. Good resolution of symptoms after GI cocktail. Medical Records I reviewed the patient's medical records. Lab Data I reviewed the patient's lab results. 02/11/25 10:53 05/21/25 10:53 Radiology Impressions Chest X-Ray 02/11/25 10:49 IMPRESSION: No acute findings. Laboratory Results WBC 7.27 10^3/uL (3.29-11.43) 02/11/25 10:53 RBC 5.14 10^6/uL (3.85-5.65) 02/11/25 10:53 Hgb 15.30 g/dL (11.27-16.99) 02/11/25 10:53 Hct 46.7 % (37-53) 02/11/25 10:53 MCV 90.9 fl (82-101) 02/11/25 10:53 MCH 29.8 pg (27-33) 02/11/25 10:53 MCHC 32.8 g/dL (30-55) 02/11/25 10:53 RDW 13.3 % (12.1-15.1) 02/11/25 10:53 Plt Count 205 10^3/cmm (157-399) 02/11/25 10:53 MPV 10.2 fL (7.4-10.4) 02/11/25 10:53 Neut % (Auto) 66.8 % 02/11/25 10:53 Lymph % (Auto) 21.0 % 02/11/25 10:53 Churchill % (Auto) 9.9 % 02/11/25 10:53 Eos % (Auto) 0.8 % 02/11/25 10:53 Baso % (Auto) 1.1 % 02/11/25 10:53 Neut # (Auto) 4.85 10^3/uL (1.8-7.7) 02/11/25 10:53 Lymph # (Auto) 1.5 10^3/uL (0.8-4.8) 02/11/25 10:53 [place] # (Auto) 0.7 10^3/uL (0.2-0.9) 02/11/25 10:53 Eos # (Auto) 0.1 10^3/uL (0.0-0.8) 02/11/25 10:53 Baso # (Auto) 0.1 10^3/uL (0.0-0.1) 02/11/25 10:53 Nucleated RBC % (auto) 0 % 02/11/25 10:53 Nucleated RBCs # 0.0 /100WBC 02/11/25 10:53 Sodium 141 mmol/L (136-145) 02/11/25 10:53 Potassium 4.3 mmol/L (3.5-5.1) 02/11/25 10:53 Chloride 105 mmol/L (98-107) 02/11/25 10:53 Carbon Dioxide 24 mmol/L (22-29) 02/11/25 10:53 Anion Gap 16.3 (5-19) 02/11/25 10:53 BUN 19 mg/dL (6-20) 02/11/25 10:53 Creatinine 0.9 mg/dL (0.7-1.2) 02/11/25 10:53 GFR Calculation 87.6 mL/min (90-130) L 02/11/25 10:53 Glucose 133 mg/dL (65-115) H 02/11/25 10:53 Calculated Osmolality 296 mOsm/kg (285-295) H 02/11/25 10:53 Calcium 9.2 mg/dL (8.5-10.5) 02/11/25 10:53 Total Bilirubin 0.7 mg/dL (0.15-1.2) 02/11/25 10:53 AST 17 U/L (0-40) 02/11/25 10:53 ALT 25 U/L (0-41) 02/11/25 10:53 Alkaline Phosphatase 71 U/L (40-130) 02/11/25 10:53 Troponin T Baseline < 6 ng/L (0-15) 02/11/25 10:53 Troponin T 120 Minute < 6.0 ng/L (0-15) 02/11/25 12:38 Delta Troponin T 0 ABS# (0-10) 02/11/25 12:38 Total Protein 7.1 g/dL (6.6-8.7) 02/11/25 10:53 Albumin 4.2 g/dL (3.5-5.2) 02/11/25 10:53 Globulin 2.9 g/dL (1.3-4.6) 02/11/25 10:53 All radiology interpretation(s) finalized by discharge Discharge Plan Discharge Patient Disposition: Home Clinical Impression: Chest pain due to gastrointestinal reflux disease Condition: Stable Prescriptions: New pantoprazole [Protonix] 40 mg tablet,delayed release (DR/EC) 40 mg PO DAILY Qty: 30 0RF No Action ondansetron 4 mg tablet,disintegrating 4 mg PO Q6H PRN (Reason: nausea and vomiting) Qty: 14 0RF celecoxib [Celebrex] 200 mg Capsule 200 mg PO DAILY tizanidine 4 mg Tablet 4 mg PO Q8H PRN (Reason: muscle spasms) glimepiride 4 mg Tablet 4 mg PO QAM Rx Instructions: administer with breakfast hydroxyzine HCl 25 mg Tablet 25 mg PO TID PRN (Reason: Anxiety) clobetasol 0.05 % solution See Rx Instructions .ROUTE .COMPLEX Rx Instructions: APPLY TOPICALLY TO SCALP TWICE DAILY NEEDED FOR ITCHING. mometasone 0.1 % cream 1 applic TOPICAL BID PRN (Reason: Skin Irritation) rosuvastatin 40 mg Tablet 40 mg PO QPM Eliquis 5 mg tablet 5 mg PO BID Jardiance 25 mg Tablet 25 mg PO QPM Discharge Orders: Discharge ED (Routine); Ordered 02/11/25 Ordered By: Colin Polanco Referrals: Annika Lal MD [Primary Care Provider, Family Practice] Discharge Diet: As Directed Discharge Activity: Increase activity as tolerated Patient Instructions: Diet for Stomach Ulcers and Gastritis (ED), GERD (Gastroesophageal Reflux Disease) (ED), Opioid Safety, Pain Management Print Language: Irish Coding Level of Care Code ED Safe Expert for Leonora Petty
[2025-02-11 11:24] LABS: Troponin(5th) Baseline < 6 ng/L (0-15)
[2025-02-11 11:28] LABS: Alanine Aminotransferase 25 U/L (0-41); Albumin Level 4.2 g/dL (3.5-5.2); Alkaline Phosphatase 71 U/L (40-130); Anion Gap 16.3 (5-19); Aspartate Amino Transferase 17 U/L (0-40); Blood Urea Nitrogen 19 mg/dL (6-20); Calcium 9.2 mg/dL (8.5-10.5); Carbon Dioxide 24 mmol/L (22-29); Chloride 105 mmol/L (98-107); Creatinine Clr Calc Pharmacy 111.4785; Globulin 2.9 g/dL (1.3-4.6); Glomerular Filtration Rate 87.6 mL/min (90-130); Glucose 133 mg/dL (65-115); Osmolality Calculated 296 mOsm/kg (285-295); Potassium 4.3 mmol/L (3.5-5.1); Sodium 141 mmol/L (136-145); Total Bilirubin 0.7 mg/dL (0.15-1.2); Total Protein 7.1 g/dL (6.6-8.7)
[2025-02-11] MEDS: lidocaine 2% viscous 15 ML, aluminum-mag hydrox-simethicon 30 ML, sucralfate oral liq 1 GM PO (11:34)
[2025-02-11 11:36] VITALS: BP 135/90; PULSE 97; O2SAT 97
--- NOTE | 2025-02-11 12:12 | ECG_ITS ---
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 Measurements Intervals [place] Rate: 83 P: 48 RI: 172 QRS: -12 QRSD: 106 T: 26 QT: 372 QTc: 438 Interpretive Statements SINUS RHYTHM Compared to ECG 02/11/2025 10:39:45 No significant changes Electronically Signed On 02-12-2025 18:25:44 CDT by Damián Johnson M.D. [email or web address]
[2025-02-11 13:18] LABS: Troponin 5 2HR < 6.0 ng/L (0-15); Troponin 5 2HR Delta 0 ABS# (0-10)
[2025-02-11 14:01] VITALS: BP 164/94; PULSE 88; O2SAT 96
[2025-02-11 14:02] VITALS: BP 164/64; PULSE 88; O2SAT 96
== END 2025-02-11 14:03 | disposition home or self-care (01) ==
PROVIDERS: Emergency Provider Family Medicine; PCP Family Medicine
DX: K21.9 Gastro-esophageal reflux disease without esophagitis (principal); R07.89 Other chest pain; Z79.01 Long term (current) use of anticoagulants
CPT/HCPCS: 36415; 71045; 80053; 84484; 85025; 93005; 99285; J9999

== ENCOUNTER 2025-04-28 15:13 | Outpatient (CLI) | payer OTHER, SELFPAY ==
--- NOTE | 2025-04-28 15:19 | CT_ITS ---
WS: [id number] CT CERVICAL SPINE HISTORY: INCREASE IN CERVICALGIA TECHNIQUE: Contiguous 2.0 mm axial imaging performed through the entire cervical spine. Sagittal and coronal reformats also performed. All CT scans at [facility] use at least one of these dose optimization techniques: automated exposure control; mA and/or kV adjustment per patient size (includes targeted exams where dose is matched to clinical indication); or iterative reconstruction. DLP: 366.17 mGy.cm COMPARISON: None available. Straightening of the normal cervical lordosis. Disc spaces are very mildly narrowed. Mild hypertrophic osteophytosis throughout the cervical spine. Facets are normally aligned. Lateral masses are aligned. The odontoid is intact. Normal craniocervical junction. C2-C3: Mild osteophytic ridging. Very mild RIGHT foraminal stenosis. C3-C4: Mild osteophytic ridging and facet arthritis. Moderate RIGHT and mild LEFT foraminal stenosis. C4-C5: Diffuse osteophytic ridging. Mild osteophyte encroachment upon the ventral thecal sac greatest on the RIGHT. Moderate to severe RIGHT and mild LEFT foraminal stenosis. There is also a osteophyte encroachment upon the thecal sac. C5-C6: Mild bilateral facet arthritis. No stenosis. C6-C7: Normal. C7-T1: Normal. Lung apices are clear. Small bilateral cervical chain lymph nodes. CT/CT cervical spin wo con* [id number] IMPRESSION: 1. Hypertrophic osteophytes of the cervical spine with narrowing of the forami na. Multilevel foraminal stenoses due to osteophytosis and facet arthritis. 2. No high-grade central stenosis. 3. Moderate to severe RIGHT and mild LEFT foraminal stenosis at C4-5. 4. Mild RIGHT foraminal stenosis at C2-3. 5. Moderate RIGHT and mild LEFT foraminal stenosis at C3-4.
== END 2025-04-28 15:14 | disposition home or self-care (01) ==
LOC: RAD 15:14
PROVIDERS: PCP Family Medicine; Visit Provider Nurse Practitioner
DX: M48.02 Spinal stenosis, cervical region (principal); M25.78 Osteophyte, vertebrae; M54.2 Cervicalgia
CPT/HCPCS: 72125